=== PATIENT | female | born 1995 | race American Indian/Alaskan Native ===

== ENCOUNTER 2022-01-02 08:51 | Emergency (ER) | payer OTHER ==
[2022-01-02 09:46] VITALS: BP 106/71
[2022-01-02 11:20] LABS: Mucus,Urine 1+ /HPF
[2022-01-02 11:33] LABS: Bilirubin,Urine Negative (Negative); Color,Urine Yellow (Yellow)
[2022-01-02 11:34] LABS: Blood,Urine Negative (Negative); Urobilinogen,Urine < 2.0 mg/dL (<2.0)
--- NOTE | 2022-01-02 12:45 | Emergency Department Report ---
ED Abdominal Pain HPI - General Chief Complaint: Abdominal Pain Stated Complaint: STOMACH ISSUES Time Seen by Provider: 01/02/22 12:07 Source: patient Mode of arrival: Ambulatory Limitations: No Limitations - History of Present Illness Initial Comments: 26-year-old female presents with right lower and suprapubic abdominal pain that started about 5 to 6 days ago and progressively getting worse. Patient also reports nausea and nonbloody vomiting with nonbloody diarrhea. Patient denies any fever but has had some chills. Patient denies any allergies to food or drink. Patient reported that she had normal menstrual last week. She mentioned that there is no way she could be . Patient rated abdominal pain as 5/10 in severity. Patient also denies any other modifying or as a factor. Severity scale (0 -10): 7 - Related Data Allergies Allergy/AdvReac Type Severity Reaction Status Date / Time amoxicillin Allergy Unknown Verified 01/02/22 09:42 ED Review of Systems ROS: Stated complaint: STOMACH ISSUES Other details as noted in HPI Comment: All other systems reviewed and negative Constitutional: denies: fever Gastrointestinal: abdominal pain, nausea, vomiting, diarrhea ED Physical Exam - General Limitations: No Limitations General appearance: alert, in no apparent distress - Eye Eye exam: Present: normal appearance Pupils: Present: normal accommodation - ENT ENT exam: Present: normal exam, normal orophraynx, mucous membranes moist - Neck Neck exam: Present: normal inspection, full ROM - Respiratory Respiratory exam: Present: normal lung sounds bilaterally. Absent: respiratory distress, wheezes - Cardiovascular Cardiovascular Exam: Present: regular rate, normal rhythm, normal heart sounds - GI/Abdominal GI/Abdominal exam: Present: soft, tenderness (Right lower quadrant and suprapubic tenderness with no guarding). Absent: distended, guarding, rebound - Extremities Exam Extremities exam: Present: normal inspection, full ROM, normal capillary refill. Absent: pedal edema - Back Exam Back exam: Present: normal inspection, full ROM. Absent: tenderness, CVA tenderness (R), CVA tenderness (L) - Neurological Exam Neurological exam: Present: alert - Psychiatric Psychiatric exam: Present: normal affect, normal mood - Skin Skin exam: Present: warm. Absent: rash ED Course Vital Signs 01/02/22 09:42 Temperature 98.3 F Pulse Rate 61 Respiratory 18 Rate Blood Pressure 106/71 [Right] O2 Sat by Pulse 100 Oximetry - Reevaluation(s) Reevaluation #1: 01/02/22 12:43 Patient here with abdominal pain and noted with right lower quadrant and suprapubic abdominal tenderness with nausea and vomiting and diarrhea Reevaluation #2: 01/02/22 12:45 Shortly after visiting with the patient I was told by the nurse that patient reported that she is hungry and wanted to sign out AGAINST MEDICAL ADVICE to go and eat. I went into the room and passed with patient and discussed my concern with her but she insisted and decided to sign out AGAINST MEDICAL ADVICE. ED Medical Decision Making - Medical Decision Making Patient here with abdominal pain and noted with right lower quadrant and suprapubic abdominal tenderness with nausea and vomiting and diarrhea--this could be viral gastroenteritis versus appendicular disease versus post menstrual syndrome versus ovarian cyst or --we will go ahead and rule out all this with CBC and CMP, urinalysis and consider imaging if urine hCG is negative for . Critical care attestation.: If time is entered above; I have spent that time in minutes in the direct care of this critically ill patient, excluding procedure time. ED Disposition Clinical Impression: Abdominal pain Qualifiers: Abdominal location: right lower quadrant Qualified Code(s): R10.31 - Right lower quadrant pain Disposition: 07 LEFT AGAINST MEDICAL ADVICE Is pt being admited?: No Does the pt Need Aspirin: No Condition: Stable Instructions: Abdominal Pain (ED) Additional Instructions: Even though you have signed out AGAINST MEDICAL ADVICE please return to the emergency room if your symptoms worsen Referrals: PRIMARY CARE, [Primary Care Provider] - 3-5 Days Forms: AMA Form
== END 2022-01-02 12:36 | disposition left against medical advice (07) ==
LOC: ED 08:51
DX: R10.31 Right lower quadrant pain (principal); R11.2 Nausea with vomiting, unspecified; R19.7 Diarrhea, unspecified; Z88.1 Allergy status to other antibiotic agents; Z79.899 Other long term (current) drug therapy
CPT/HCPCS: 81001; 99283

== ENCOUNTER 2022-02-18 14:52 | Emergency (ER) | payer OTHER ==
[2022-02-18 15:06] VITALS: BP 101/57
== END 2022-02-18 17:51 | disposition left against medical advice (07) ==
LOC: ED 14:52
DX: R10.9 Unspecified abdominal pain (principal); Z53.21 Procedure and treatment not carried out due to patient leaving prior to being seen by health care provider

== ENCOUNTER 2022-02-18 22:58 | Emergency (ER) | payer OTHER ==
[2022-02-19] MEDS ORDERED: ONDANSETRON 4 MG/2 ML INJ IV ONE (04:47)
[2022-02-19] MEDS ORDERED: MORPHINE 4 MG/1 ML INJ IV ONE (04:47)
--- NOTE | 2022-02-19 04:52 | Emergency Department Report ---
ED Abdominal Pain HPI - General Chief Complaint: Abdominal Pain Stated Complaint: AB PAIN Source: patient Mode of arrival: Ambulatory Limitations: No Limitations - History of Present Illness Initial Comments: Patient is a nulliparous 26-year-old -Tajik female with no past medical history who presents to the ED with complaint of acute onset persistent right lower quadrant abdominal pain with nausea and vomiting for the last 2 days. Patient states that the pain is especially worse with movement. Patient denies dizziness, syncope, diarrhea, dysuria, urinary frequency and urgency, vaginal bleeding, vaginal discharge, low back pain, traumatic injury or heavy lifting, chest pain or shortness of breath, fever and chills. MD Complaint: abdominal pain (RLQ ), other (Nausea and vomiting) -: Sudden, days(s) (2) Location: RLQ Radiation: RLQ Migration to: RLQ Severity: severe Severity scale (0 -10): 9 Quality: cramping, aching, sharp Improves With: rest Worsens With: movement Associated Symptoms: denies other symptoms, nausea, vomiting, anorexia. denies: diarrhea, fever, chills, dysuria, hematemesis, hematochezia, melena, hematuria, syncope, other - Related Data LMP Date: 02/01/22 Previous Rx's Medication Instructions Recorded Last Taken Type Ketorolac [Toradol] 10 mg PO Q8H PRN #20 tab 02/19/22 Unknown Rx Ondansetron [Zofran Odt] 4 mg PO Q8HR PRN #20 tab.rapdis 02/19/22 Unknown Rx traMADoL [Ultram] 50 mg PO Q6HR PRN #10 tablet 02/19/22 Unknown Rx Allergies Allergy/AdvReac Type Severity Reaction Status Date / Time amoxicillin Allergy Unknown Verified 02/19/22 02:26 ED Review of Systems ROS: Stated complaint: AB PAIN Other details as noted in HPI Constitutional: denies: chills, fever Eyes: denies: eye pain, eye discharge, vision change ENT: denies: ear pain, throat pain Respiratory: denies: cough, shortness of breath, wheezing Cardiovascular: denies: chest pain, palpitations Endocrine: no symptoms reported Gastrointestinal: abdominal pain (RLQ), nausea, vomiting. denies: diarrhea Genitourinary: denies: urgency, dysuria, discharge Musculoskeletal: denies: back pain, joint swelling, arthralgia Skin: denies: rash, lesions Neurological: denies: headache, weakness, paresthesias Psychiatric: denies: anxiety, depression Hematological/Lymphatic: denies: easy bleeding, easy bruising ED Past Medical Hx - Past Medical History Previous Medical History?: No - Surgical History Past Surgical History?: No - Social History Smoking Status: Never Smoker Substance Use Type: None - Medications Home Medications: Home Medications Medication Instructions Recorded Confirmed Last Taken Type Ketorolac [Toradol] 10 mg PO Q8H PRN #20 tab 02/19/22 Unknown Rx Ondansetron [Zofran Odt] 4 mg PO Q8HR PRN #20 tab.rapdis 02/19/22 Unknown Rx traMADoL [Ultram] 50 mg PO Q6HR PRN #10 tablet 02/19/22 Unknown Rx ED Physical Exam - General Limitations: No Limitations General appearance: alert, in no apparent distress - Head Head exam: Present: atraumatic, normocephalic, normal inspection - Eye Eye exam: Present: normal appearance, PERRL, EOMI Pupils: Present: normal accommodation - ENT ENT exam: Present: normal exam, normal orophraynx, mucous membranes moist, TM's normal bilaterally, normal external ear exam - Neck Neck exam: Present: normal inspection, full ROM. Absent: tenderness - Respiratory Respiratory exam: Present: normal lung sounds bilaterally. Absent: respiratory distress, wheezes, rales, rhonchi, chest wall tenderness, accessory muscle use - Cardiovascular Cardiovascular Exam: Present: regular rate, normal rhythm, normal heart sounds. Absent: systolic murmur, diastolic murmur, rubs, gallop - GI/Abdominal GI/Abdominal exam: Present: soft, tenderness (Palpable RLQ tenderness), normal bowel sounds. Absent: guarding, rebound, hyperactive bowel sounds, hypoactive bowel sounds, organomegaly - Extremities Exam Extremities exam: Present: normal inspection, full ROM, normal capillary refill - Back Exam Back exam: Present: normal inspection, full ROM. Absent: tenderness, CVA tenderness (R), CVA tenderness (L), muscle spasm, paraspinal tenderness, vertebral tenderness - Neurological Exam Neurological exam: Present: alert, oriented X3, CN II-XII intact, normal gait, reflexes normal - Psychiatric Psychiatric exam: Present: normal affect, normal mood - Skin Skin exam: Present: warm, dry, intact, normal color. Absent: rash ED Course Vital Signs 02/19/22 02:23 Temperature 98.7 F Pulse Rate 63 Respiratory 18 Rate Blood Pressure 97/50 [Left] O2 Sat by Pulse 100 Oximetry ED Medical Decision Making - Lab Data Result diagrams: 02/19/22 04:54 02/19/22 04:54 - Radiology Data Radiology results: report reviewed, image reviewed [facility] [address] [id number] Cat Scan Report Signed Patient: JLUIS HUANG MR#: [id number] : 1995 A cct:[id number] Age/Sex: 26 / F ADM Date: 02/18/22 Loc: ED Attending Dr: Ordering Physician: ROJAS ECHAVARRIA Date of Service: 02/19/22 Procedure(s): CT abdomen pelvis w con Accession Number(s): [id number] cc: ROJAS ECHAVARRIA CT ABDOMEN AND PELVIS WITH CONTRAST INDICATION: R.L.Q. ABDOMINAL PAIN CONTRAST: 100 cc Omnipaque 300 IV COMPARISON: None available. All CT scans at this location are performed using CT dose reduction for ALARA by means of automated exposure control. FINDINGS: Lung bases clear of infiltrates. Slight diffuse increase in interstitial markings is unusual at the patient's age. No nodularity is seen. No pneumoperitoneum. Gallbladder and bile ducts normal. No urinary obstruction. No lymphadenopathy. No abdominal masses. No bowel obstruction. Appendix partially seen without obvious abnormality. No inflammation. Ovaries line in a high anterior position bilaterally. On the right there is a partly collapsed 2 cm cyst. Small amount of free fluid is noted. IMPRESSION: 1. Partly collapsed right ovarian cyst with a small amount of free fluid could indicate recent rupture and relate to patient's pain. No other obvious source is seen. 2. Though no focal infiltrate is noted, the lung bases appear to show mild diffuse increased interstitial markings which is unusual at the patient's age. Clinical correlation is suggested. Signer Name: Cam Hammer MD Signed: 02/19/2022 6:42 AM Workstation Name: [id number] Transcribed By: BISHNU Dictated By: Cam Hammer MD Electronically Authenticated By: Cam Hammer MD Signed Date/Time: 02/19/22641 DD/ 4 TD/TT: - Medical Decision Making This is a nulliparous 26-year-old -Taj[place] female with no past medical history who presents to the ED with complaint of acute onset persistent right lower quadrant abdominal pain with nausea and vomiting for the last 2 days. Patient states that the pain is especially worse with movement. In the ED, patient is alert and oriented x3 and is not in any distress. Patient is hemodynamically stable. Patient was treated for pain in the ED. lab test results were reviewed and are all nonactionable except for slightly elevated lipase level to 287. Abdomen pelvis CT scan with IV contrast showed normal appendix and a partly collapsed right ovarian cyst with a small amount of free fluid could indicate recent rupture and relate to patient's pain. No other obvious source is seen. Patient symptoms are likely due to ovarian cyst. On reevaluation, patient's pain is well controlled medication. Patient will discharge home on pain medications and antiemetics and advised to follow-up with her [facility]SE [facility]TER physician or primary care physician in 7 to 10 days for reevaluation or return to the ED immediately if symptoms get worse - Differential Diagnosis Appendicitis; ovarian cyst; UTI; ectopic ; kidney stones Critical care attestation.: If time is entered above; I have spent that time in minutes in the direct care of this critically ill patient, excluding procedure time. ED Disposition Clinical Impression: Acute abdominal pain in right lower quadrant, Nausea and vomiting in adult patient, Rupture of cyst of right ovary Disposition: 01 HOME / SELF CARE / HOMELESS Is pt being admited?: No Does the pt Need Aspirin: No Condition: Stable Instructions: Nausea and Vomiting, Adult, [id number], Abdominal Pain, Adult, [id number], Abdominal Pain (ED), Ovarian Cyst, [id number] Additional Instructions: All lab test results were reviewed and are all nonactionable except for slightly elevated lipase level of 287. All other lab test results are unremarkable. Abdomen pelvis CT scan with IV contrast showed no acute abnormalities or appendicitis except for a recently ruptured 2 cm ovarian cyst on the right. Therefore take medications with food, drink plenty of fluids, follow-up with your NURSE [facility]TER physician or primary care physician in 7 to 10 days for reevaluation or return to the ED immediately if symptoms get worse for Prescriptions: Ketorolac [Toradol] 10 mg PO Q8H PRN #20 tab PRN Reason: Pain , Severe (7-10) traMADoL [Ultram] 50 mg PO Q6HR PRN #10 tablet PRN Reason: Pain Ondansetron [Zofran Odt] 4 mg PO Q8HR PRN #20 tab.rapdis PRN Reason: Nausea Referrals: [facility] [Provider Group] - 3-5 Days Forms: Work/School Release Form(ED) Time of Disposition: 06:55 Print Language: PALESTINIAN
[2022-02-19 05:06] LABS: Bilirubin,Urine NEG (Negative); Blood,Urine NEG (Negative); Color,Urine Yellow (Yellow); Mucus,Urine 1+ /HPF; Protein,Urine <15 mg/dL mg/dL (Negative); Urobilinogen,Urine < 2.0 mg/dL (<2.0)
[2022-02-19 05:23] LABS: Basophils # (Auto) 0.1 K/mm3 (0.0-0.1); Basophils % (Auto) 1.8 % (0.0-1.8); Eosinophils # (Auto) 0.2 K/mm3 (0.0-0.4); Eosinophils % (Auto) 4.1 % (0.0-4.3); Hematocrit 37.1 % (30.3-42.9); Hemoglobin 11.9 gm/dl (10.1-14.3); Lymphocytes # (Auto) 2.2 K/mm3 (1.2-5.4); Lymphocytes % (Auto) 46.8 % (13.4-35.0); Mean Corpuscular HGB Conc 32 % (30-34); Mean Corpuscular Volume 87 fl (79-97); Monocytes # (Auto) 0.4 K/mm3 (0.0-0.8); Monocytes % (Auto) 8.4 % (0.0-7.3); Platelet Count 273 K/mm3 (140-440); Red Blood Count 4.29 M/mm3 (3.65-5.03); Red Cell Distribution Width 13.5 % (13.2-15.2)
[2022-02-19 05:39] LABS: Alanine Aminotransferase 8 units/L (7-56); Albumin 4.1 g/dL (3.9-5); BUN/Creatinine Ratio 13; Blood Urea Nitrogen 9 mg/dL (7-17); Hemolysis Index 9
--- NOTE | 2022-02-19 06:46 | Cat Scan Report ---
CT ABDOMEN AND PELVIS WITH CONTRAST INDICATION: R.L.Q. ABDOMINAL PAIN CONTRAST: 100 cc Omnipaque 300 IV COMPARISON: None available. All CT scans at this location are performed using CT dose reduction for ALARA by means of automated e xposure control. FINDINGS: Lung bases clear of infiltrates. Slight diffuse increase in interstitial markings is unusua l at the patient's age. No nodularity is seen. No pneumoperitoneum. Gallbladder and bile ducts normal. No urinary obstruction. No lymphadenopathy. N o abdominal masses. No bowel obstruction. Appendix partially seen without obvious abnormality. No inf lammation. Ovaries line in a high anterior position bilaterally. On the right there is a partly collapsed 2 cm c yst. Small amount of free fluid is noted. IMPRESSION: 1. Partly collapsed right ovarian cyst with a small amount of free fluid could indicate recent ruptur e and relate to patient's pain. No other obvious source is seen. 2. Though no focal infiltrate is noted, the lung bases appear to show mild diffuse increased intersti tial markings which is unusual at the patient's age. Clinical correlation is suggested. Signer Name: Cam Hammer MD Signed: 02/19/2022 6:42 AM Workstation Name: [id number]
[2022-02-19 07:02] VITALS: BP 107/61
== END 2022-02-19 07:03 | disposition home or self-care (01) ==
LOC: ED 22:58
DX: N83.291 Other ovarian cyst, right side (principal); R10.31 Right lower quadrant pain; R11.2 Nausea with vomiting, unspecified
CPT/HCPCS: 36415; 74177; 80053; 81001; 83690; 84703; 85025; 96374; 96375; 99284; J2270; J2405; Q9967